=== PATIENT | female | born 1965 | race Caucasian/White ===

== ENCOUNTER → 2017-03-15 | Outpatient (CLI) | payer OTHER ==
[~2017-03-15] MED LIST: NORE5TAB5 PO
== END | disposition home or self-care (01) ==
LOC: C.PAPS 15:25
PROVIDERS: ATTEND Obstetrics & Gynecology
DX: Z01.419 Encounter for gynecological examination (general) (routine) without abnormal findings (principal)

== ENCOUNTER → 2017-03-18 | Day surgery (SDC) | payer OTHER ==
[2017-03-03 11:38] VITALS: Ht 162.6 cm; Wt 67.3 kg
--- NOTE | 2017-03-15 12:26 | HISTORY & PHYSICAL EXAMINATION ---
DATE OF ADMISSION: 03/18/2017 CHIEF COMPLAINT: Prolonged heavy vaginal bleeding, abnormal transvaginal ultrasound. HISTORY OF PRESENT ILLNESS: The patient is a 51-year-old old 4, para 3. She has had one spontaneous AB. She has a history of having a chocolate cyst drained from an ovary when she was in her 20s. She has had episodes of irregular bleeding for over 2 years, skipping periods and then having a prolonged bleeding for about 20 days. She recently had a prolonged heavy vaginal bleeding at which time she was evaluated with a transvaginal ultrasound and that showed a thickened endometrial stripe of 2.4 cm and she is presently being scheduled for an outpatient D\T\C hysteroscopy. PAST MEDICAL HISTORY: She has had a laparoscopic drainage of chocolate cyst of the ovary and she has had no other significant procedures. ALLERGIES: SHE STATES SHE IS ALLERGIC TO AMOXICILLIN, WHICH GIVES HER SHORTNESS OF BREATH MEDICATIONS: She is on no chronic pills or medications. No history of rheumatic fever, heart disease, heart murmur, diabetes, tuberculosis. SOCIAL HISTORY: She has 3 children in good health. No smoking, no alcohol intake, self-employed. FAMILY HISTORY: Mom is 69 in good health. Father at age 58, bleeding ulcer. No brothers or sisters. REVIEW OF SYSTEMS: HEAD: No symptoms of frequent or severe headaches. EYES: No symptoms of blurred vision, double vision. EARS: No symptoms of frequent ear infections, difficulty hearing. NOSE: No symptoms of nosebleeds, difficulty breathing through her nose. THROAT: No symptoms of frequent or severe sore throat, difficulty swallowing. PHYSICAL EXAMINATION: GENERAL: Well-developed, well-nourished 51-year-old white female, alert, oriented x3 and cooperative in no acute distress, appears stated age. EYES: Conjunctivae are pink, sclerae white, no evidence of jaundice. EARS: Had normal light reflex bilaterally. NOSE: Had normal mucosa. Septum is midline. There were no polyps. THROAT: No erythema or evidence of infection. Teeth are in good state of repair. HEAD: Was normocephalic, normal distribution of hair. NECK: Supple. Trachea midline. Thyroid is not enlarged. There is no adenopathy appreciated. Both carotids are of good intensity. CHEST: Clear to auscultation and percussion. No wheezes, rales or rhonchi appreciated. HEART: Regular rhythm. S1, S2 were normal. ABDOMEN: Soft and nontender. There was an umbilical scar, well healed. PELVIC: Revealed a normal-appearing cervix. Uterus was top normal size. There were no adnexal masses appreciated. MUSCULOSKELETAL: Revealed no calf tenderness. IMPRESSIONS OF THIS CASE: History of endometriosis with drainage of a chocolate cyst and dysfunctional uterine bleeding, abnormal transvaginal ultrasound with thickened endometrial stripe.
[2017-03-17 15:27] LABS: PREG INTERNAL NEGATIVE QC NEG CLEAR BACKGROUND; PREG INTERNAL POSITIVE QC POS CONTROL LINE
[~2017-03-18] VITALS: Ht 162.6 cm; Wt 67.3 kg
[~2017-03-18] MED LIST changes: +ATROPINE SULFATE 0.1 MG/ML 5ML SYR IV PRN; +DEXAMETHASONE SOD INJ 4 MG/ML VIAL ONE; +EpHEDrine SULFATE INJ 50 MG/ML AMP IV PRN; +FENTANYL CITRATE INJ 50 MCG/1 ML 2 ML VIAL IV PRN; +FENTANYL CITRATE INJ 50 MCG/1 ML 2 ML VIAL ONE; +FLUMAZENIL 0.1 MG/1 ML 10 ML VIAL IV PRN; +HYDROCODONE/ACETAMOPHEN 5/325MG TAB PO PRN; +HYDROmorphone INJ 2 MG/ML SYR/VIAL IV PRN; +IBUPROFEN 600 MG TAB PO PRN; +KETOROLAC TROMETHAMINE 30 MG/ML VIAL IV. PRN; +LABETALOL HCL IV 5 MG/ML 20ML IV PRN; +LACTATED RINGER'S 1000ML 1,000 ML IV SCH; +LIDOCAINE HCL 2% 2 ML VIAL (20MG/ML) ONE; +MEPERIDINE HCL 25 MG/ML CARP IV PRN; +MIDAZOLAM HCL 1 MG/ML 2ML VIAL ONE; +NALOXONE HCL 0.4 MG/1 ML VIAL/CARP IV PRN; +ONDANSETRON INJ 2 MG/ML 2 ML VIAL IV PRN; +ONDANSETRON INJ 2 MG/ML 2 ML VIAL ONE; +OXYCODONE/ACETAMINOPHEN 5-325 TAB PO PRN; +PHENYLEPHRINE 100MCG/ML 5ML SYR IV PRN; +PROPOFOL IV EMULSION 10 MG/ML 20 ML VIAL IV ONE; +SODIUM CHLORIDE 0.9% 1000ML 1,000 ML IV SCH
--- NOTE | 2017-03-18 06:59 | History & Physical Bridge Note ---
H&P Re-Evaluation Bridge Note: I have examined the patient, reviewed the History & Physical and in the interval since the performance of the History & Physical I have noted the following changes of clinical significance: No changes noted
--- NOTE | 2017-03-18 07:34 | [facility] Post Operative Brief Note ---
Immediate Operative Summary Operative Date March 18, 2017. Pre-Operative Diagnosis Hypermenorrhea Post-Operative Diagnosis same Procedure(s) Performed Dilatation And Curettage, Hysteroscopy Surgeon Dr. Damian Goss Silk Finisher Surgeon(s) 0 Estimated Blood Loss 5CC Findings UTERUS SOUNDED TO 9 CM SMALL AMOUNT OF CURETTINGS Specimens A. Endometrial Curettings Complication(s) None Disposition Recovery Room / PACU
--- NOTE | 2017-03-18 07:35 | Discharge Instructions-SurgCtr ---
Discharge Instructions Date of Service March 18, 2017. Visit Reason for Visit: Hypermenorrhea Discharge Discharge Diagnosis / Problem: HYPERMENORRHEA Discharge Goals Goal(s): Improve function, Learn about illness Medications Stopped Medications Name(s): Aygestin Stopped 2 weeks ago. Activity Recommendations Activity Limitations: as noted below ACTIVITY RECOMMENDATIONS: * Avoid tampons, douching, hot tubs, pools, and intercourse until bleeding has stopped. * May shower as usual. * No strenuous activity for 24-48 hours. After 24-48 hours, you may do anything you feel like doing (driving and sports are okay). SPECIAL CARE INSTRUCTIONS: Special Diet: * Mild nausea may occur in the immediate post-operative period. * Take clear liquids such as tea, cola or bouillon until all nausea has subsided; you may then resume your normal diet. Special Care: * Light bleeding and vaginal spotting can last from a few days to 3-4 weeks. Call your doctor if bleeding becomes heavier than the heaviest part of your period. * Check your temperature twice a day for one week. If it goes above 100.4 degrees Fahrenheit (38.0 Celsius), notify your doctor. * Call your doctor's office for an appointment for 6 weeks after your surgery. FOLLOW-UP VISIT: Call your doctor's office for an appointment for 6 weeks after your surgery. Anesthesia . Post Anesthesia Instructions: If you have had General Anesthesia or IV Sedation: * Do not drive today. * Resume driving when surgeon permits. * Do not make important decisions or sign legal documents today. * Call surgeon for: 1. Temperature elevations greater than 101 degrees F. 2. Uncontrollable pain. 3. Excessive bleeding. 4. Persistent nausea and vomiting. 5. Medication intolerance (nausea, vomiting or rash). * For nausea and vomiting use only clear liquids such as: tea, soda, bouillon until nausea subsides, then gradually increase diet as tolerated. * If you have any concerns or questions, call your surgeon's office. If physician is unavailable and it is an emergency, call 911 or go to the nearest emergency room. . Diet Recommendations Home Diet: resume previous diet Procedures Procedures Performed: Dilatation And Curettage, Hysteroscopy Pending Studies Studies pending at discharge: no Medical Emergencies . Who to Call and When: Medical Emergencies: If at any time you feel your situation is an emergency, please call 911 immediately. . Non-Emergent Contact Non-Emergency issues call your: Sleep Medicine Physician Call Non-Emergent contact if: temperature is above 100.5 . . "Provider Documentation" section prepared by Jesus Goss. .
--- NOTE | 2017-03-18 07:53 | OPERATIVE REPORT ---
DATE OF OPERATION: 03/18/2017 INDICATIONS FOR SURGERY: Heavy bleeding. POSTOPERATIVE DIAGNOSIS: Same, normal endometrial cavity, uterus top normal size. PROCEDURE: Hysteroscopy, D and C. SURGEON: Dr. Goss. ESTIMATED BLOOD LOSS: 5 mL. ANESTHESIA: General. OPERATIVE FINDINGS AND PROCEDURE: The patient was brought to the OR table, correctly identified by armband and conversation. General anesthesia was administered. Perineum and vagina were painted with Betadine paint, draped in usual sterile fashion. Catheter was used to empty the bladder. Careful pelvic exam under anesthesia revealed a top normal size uterus. There were no adnexal masses appreciated. Weighted speculum was placed in the posterior vagina. Anterior lip of the cervix was grasped with single tenacula. Uterus was sounded to 9 cm. Cervix was dilated with graduated dilators. Small sharp serrated curette was placed in the uterine cavity. All 4 quadrants of the uterus were thoroughly and systematically curetted. This was productive of a small amount of tissue. Prior to the scraping of the uterus why hysteroscope had been inserted into the uterine cavity and using normal distention medium the cavity was completely visualized including the ostia both tubes. Photographs were taken. After submitting the tissues for pathological evaluation hemostasis was good. The tenaculum was removed from the cervix. Hemostasis was good. The patient tolerated the procedure well and left the OR in good condition. I attest to the content of the Intraoperative Record and any orders documented therein. Any exceptions are noted below. [facility]
[2017-03-18 08:21] VITALS: TEMP 36.5
--- NOTE | 2017-03-18 08:22 | Anesthesia Progress Nt - [facility] ---
Anesthesia Post Op Note Date & Time March 18, 2017 at 08:21 Vital Signs Pain Intensity: 0 Vital Signs Past 12 Hours Date Time Temp Pulse Resp B/P Pulse Ox O2 Delivery O2 Flow Rate FiO2 03/18/17 08:16 114/69 03/18/17 08:14 61 19 03/18/17 08:14 59 19 99 03/18/17 08:13 64 14 03/18/17 08:13 64 14 100 03/18/17 08:11 108/73 03/18/17 08:10 37.2 67 20 108/73 100 Room Air 03/18/17 08:08 79 19 03/18/17 08:08 79 19 100 03/18/17 08:07 73 14 100 03/18/17 08:07 72 14 03/18/17 08:06 105/69 03/18/17 08:02 67 13 03/18/17 08:02 62 13 100 03/18/17 08:01 112/69 03/18/17 07:59 66 11 03/18/17 07:59 66 11 100 03/18/17 07:58 63 13 100 03/18/17 07:58 65 13 03/18/17 07:57 52 9 03/18/17 07:57 53 9 100 03/18/17 07:56 110/69 03/18/17 07:53 53 14 100 03/18/17 07:53 54 14 03/18/17 07:52 63 16 03/18/17 07:52 65 16 100 03/18/17 07:51 108/69 03/18/17 07:48 67 18 03/18/17 07:48 74 18 100 03/18/17 07:47 67 15 03/18/17 07:47 74 15 100 03/18/17 07:46 107/70 03/18/17 07:42 57 5 03/18/17 07:42 59 5 100 03/18/17 07:41 103/64 03/18/17 07:40 61 10 03/18/17 07:40 61 10 100 03/18/17 07:36 92/59 03/18/17 07:35 63 18 07:35 63 100 03/18/17 07:35 36.7 57 12 92/56 100 Mask 8 03/18/17 06:30 36.5 69 16 110/66 98 Room Air Notes Mental Status: alert / awake / arousable, participated in evaluation Pt Amnestic to Procedure: Yes Nausea / Vomiting: adequately controlled Pain: adequately controlled Airway Patency, RR, SpO2: stable & adequate BP & HR: stable & adequate Hydration State: stable & adequate Anesthetic Complications: no major complications apparent
[2017-03-18 08:47] VITALS: BP 115/75; PULSE 63; O2SAT 100
== END | disposition home or self-care (01) ==
LOC: X.SURG 06:16
PROVIDERS: ATTEND Obstetrics & Gynecology
DX: N92.0 Excessive and frequent menstruation with regular cycle (principal)